=== PATIENT | male | born 1965 | race Caucasian/White ===

== ENCOUNTER 2021-03-20 11:29 | Emergency (ER) | payer BC ==
[~2021-03-20] VITALS: Ht 167.6 cm; Wt 118.4 kg
[2021-03-20] MEDS ORDERED: HYDROCODONE/APAP 5MG-325MG TAB PO ONE (11:45)
[2021-03-20] MEDS ORDERED: DIPHTH/TETANUS/ACEL. PERTUSSIS 0.5 ML SYR IM ONE (11:45)
[2021-03-20] MEDS ORDERED: BENICAR20 MG PO (11:52)
[2021-03-20] MEDS ORDERED: TETANUS/DIPHTHERIA TOX ADULT 0.5 ML SYR ONE (11:59)
[2021-03-20] MEDS ORDERED: TYLENOL # 31 EA PO (12:43)
== END 2021-03-20 14:00 | disposition home or self-care (01) ==
LOC: FSED 11:38
DX: S61.212A Laceration without foreign body of right middle finger without damage to nail, initial encounter (principal); S61.214A Laceration without foreign body of right ring finger without damage to nail, initial encounter; W26.8XXA Contact with other sharp object(s), not elsewhere classified, initial encounter; I10 Essential (primary) hypertension
CPT/HCPCS: 90471; 90714; 99284

== ENCOUNTER 2025-07-31 14:00 | Emergency (ER) | payer BC ==
[~2025-07-31] VITALS: Ht 167.6 cm; Wt 118.0 kg
[~2025-07-31 14:00] MED LIST: BENICAR20 MG PO; TYLENOL # 31 EA PO
[2025-07-31] MEDS ORDERED: ASPIRIN EC81 MG PO (14:49)
[2025-07-31] MEDS ORDERED: TRICOR48 MG PO (14:49)
[2025-07-31] MEDS ORDERED: Morphine 4mg INJECTION 4 MG/ML INJ IV ONE (15:30)
[2025-07-31] MEDS: ONDANSETRON HCL INJ 2MG/ML 2ML 2 MG/ML VIAL IV STA (16:33)
[2025-07-31] MEDS: SODIUM CHLORIDE 0.9% 1000ML 1,000 ML IV ONE ×2 (16:33→19:00)
[2025-07-31] MEDS ORDERED: METOCLOPRAMIDE HCL 10 MG/2ML VIAL ONE (17:54)
[2025-07-31] MEDS: METOCLOPRAMIDE HCL 10 MG/2ML VIAL IV ONE ×2 (18:08→20:30)
[2025-07-31 20:09] VITALS: PULSE 90; RESP 16; TEMP 97.4
[2025-07-31] MEDS ORDERED: REGLAN10 MG PO (20:31)
[2025-07-31 20:58] VITALS: BP 136/63; O2SAT 96
== END 2025-07-31 20:39 | disposition home or self-care (01) ==
LOC: FSED 14:14
DX: K29.70 Gastritis, unspecified, without bleeding (principal); R11.0 Nausea; R42 Dizziness and giddiness; I10 Essential (primary) hypertension; I25.10 Atherosclerotic heart disease of native coronary artery without angina pectoris; Z87.442 Personal history of urinary calculi
CPT/HCPCS: 74176; 80048; 80076; 84484; 85025; 96374; 96375; 99284; J2405; J2765; J7030; 93005